=== PATIENT | male | born 1990 | race Caucasian/White ===

== ENCOUNTER 2016-11-18 17:28 | Inpatient (IN) | payer BC, OTHER ==
[2016-11-18] MEDS ORDERED: ONDANSETRON 4 MG/2 ML VIAL ONE (17:43)
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
[2016-11-18] MEDS ORDERED: NS 1,000 ML IV ONE (17:45)
[2016-11-18] MEDS ORDERED: HYDROmorphONE/DILAUDID 1 MG/ML SYR IVP ONE ×2 (17:45→19:15)
[2016-11-18] MEDS ORDERED: ONDANSETRON 4 MG/2 ML VIAL IVP ONE (17:45)
[2016-11-18 18:08] LABS: % IMMATURE GRANULYOCYTES 0.3 % (0.0-1.1); ABSOLUTE IMMATURE GRANULOCYTES 0.04 10^3/uL (0.00-0.10); ADD DIFF? NO; ADD MORPH? NO; ADD SCAN? NO; ATYPICAL LYMPHOCYTE FLAG 0 (0-99); FRAGMENT RBC FLAG 0 (0-99); HEMATOCRIT 44.5 % (40.0-51.0); LEFT SHIFT FLG 0 (0-99); LIPEMIA HEMOLYSIS FLAG 80 (0-99); MEAN CELL HEMOGLOBIN 31.4 pg (27.9-34.1); MEAN CELL HEMOGLOBIN CONCENTR. 33.7 g/dL (32.4-36.7); MEAN CELL VOLUME 93.1 fL (81.5-99.8); MEAN PLATELET VOLUME 9.9 fL (8.7-11.7); PLATELET CLUMPS FLAG 0 (0-99); PLATELET COUNT 322 10^3/uL (150-400); RED BLOOD CELL COUNT 4.78 10^6/uL (4.40-6.38); RED CELL DISTRIBUTION WIDTH 13.1 % (11.5-15.2)
[2016-11-18 18:15] LABS: ANION GAP 10 mEq/L (8-16); CALCIUM 10.4 mg/dL (8.5-10.4); CARBON DIOXIDE 29 mEq/l (22-31); CHLORIDE 100 mEq/L (97-110); CREATININE 0.9 mg/dL (0.7-1.3); GLOMERULAR FILTRATION RATE > 60; GLUCOSE 123 mg/dL (70-100); POTASSIUM 3.9 mEq/L (3.5-5.2); SODIUM 139 mEq/L (134-144)
[2016-11-18] MEDS ORDERED: IOPAMIDOL (ISOVUE-300) 100 ML BTL IV ONE (18:28)
[2016-11-18] MEDS ORDERED: ACETAMINOPHEN 325 MG TAB PO PRN (20:44)
[2016-11-18] MEDS ORDERED: BENZOCAINE UNIT DOSE SPRAY HURRICAINE MM ONE ×2 (20:44)
[2016-11-18] MEDS ORDERED: LIDOCAINE 2% JELLY 20 ML (UROJECT) ONE (20:44)
[2016-11-18] MEDS ORDERED: ONDANSETRON DISINTEGRATING 4 MG TAB PO PRN (20:44)
[2016-11-18] MEDS ORDERED: LORazepam 2 MG/ML INJ ONE (20:46)
--- NOTE | 2016-11-18 20:57 | PDGENHP ---
History and Physical - Chief Complaint abd pain - History of Present Illness 25 y/o male with onset abd pain, nausea and emesis earlier today. Pt was seen in the ED by Dr. De Guzman who ordered a CT scan and surgical consult was requested. PMH: lap appendectomy 2014 small bowel resection 2014 drainage pelvic abscess 2014 meds: non NKDA non-smoker SH: here with friend FH: [facility]U ROS: constipation/occasional blood after BM History Information - Allergies/Home Medication List Allergies/Adverse Reactions: No Known Allergies Allergy (Verified 11/16/14 19:25) Home Medications: NK [No Known Home Meds] 11/18/16 [Last Taken Unknown] I have personally reviewed and updated: family history, medical history, social history, surgical history - Social History Smoking Status: Never smoked Alcohol Use: Occasionally Drug Use: None Physical Exam Temp Pulse Resp BP Pulse Ox 36.5 C 51 L 18 118/71 99 11/18/16 17:32 11/18/16 19:30 11/18/16 19:30 11/18/16 19:30 11/18/16 19:30 O2 (L/minute) 2 Constitutional: uncomfortable Eyes: anicteric sclera Ears, Nose, Mouth, Throat: moist mucous membranes Cardiovascular: regular rate and rhythym Respiratory: no rales or rhonchi, clear to auscultation Gastrointestinal: tenderness (diffuse to palpation/no guarding), distension, other (hypoactive bowel sounds/well healed midline scar without hernia) Genitourinary: no bladder fullness Neurologic: AAOx3 Psychiatric: not anxious Lymph, Heme, Immunologic: no cervical LAD Lab Data & Imaging Review 11/18/16 17:40 11/18/16 17:40 WBC 12.75 10^3/uL (3.80-9.50) H 11/18/16 17:40 RBC 4.78 10^6/uL (4.40-6.38) 11/18/16 17:40 Hgb 15.0 g/dL (13.7-17.5) 11/18/16 17:40 Hct 44.5 % (40.0-51.0) 11/18/16 17:40 MCV 93.1 fL (81.5-99.8) 11/18/16 17:40 MCH 31.4 pg (27.9-34.1) 11/18/16 17:40 MCHC 33.7 g/dL (32.4-36.7) 11/18/16 17:40 RDW 13.1 % (11.5-15.2) 11/18/16 17:40 Plt Count 322 10^3/uL (150-400) 11/18/16 17:40 MPV 9.9 fL (8.7-11.7) 11/18/16 17:40 Neut % (Auto) 64.1 % (39.3-74.2) 11/18/16 17:40 Lymph % (Auto) 27.6 % (15.0-45.0) 11/18/16 17:40 [place] % (Auto) 6.9 % (4.5-13.0) 11/18/16 17:40 Eos % (Auto) 0.6 % (0.6-7.6) 11/18/16 17:40 Baso % (Auto) 0.5 % (0.3-1.7) 11/18/16:40 Nucleat RBC Rel Count 0.0 % (0.0-0.2) 11/18/16 17:40 Absolute Neuts (auto) 8.17 10^3/uL (1.70-6.50) H 11/18/16 17:40 Absolute Lymphs (auto) 3.52 10^3/uL (1.00-3.00) H 11/18/16 17:40 Absolute Monos (auto) 0.88 10^3/uL (0.30-0.80) H 11/18/16 17:40 Absolute Eos (auto) 0.08 10^3/uL (0.03-0.40) 11/18/16 17:40 Absolute Basos (auto) 0.06 10^3/uL (0.02-0.10) 11/18/16 17:40 Absolute Nucleated RBC 0.00 10^3/uL (0-0.01) 11/18/16 17:40 Immature Gran % 0.3 % (0.0-1.1) 11/18/16 17:40 Immature Gran # 0.04 10^3/uL (0.00-0.10) 11/18/16 17:40 Sodium 139 mEq/L (134-144) 02/23/17 17:40 Potassium 3.9 mEq/L (3.5-5.2) 11/18/16 17:40 Chloride 100 mEq/L (97-110) 11/18/16 17:40 Carbon Dioxide 29 mEq/l (22-31) 11/18/16 17:40 Anion Gap 10 mEq/L (8-16) 11/18/16 17:40 BUN 19 mg/dL (7-23) 11/18/16 17:40 Creatinine 0.9 mg/dL (0.7-1.3) 11/18/16 17:40 Estimated GFR > 60 11/18/16 17:40 Glucose 123 mg/dL (70-100) H 11/18/16 17:40 Calcium 10.4 mg/dL (8.5-10.4) 11/18/16 17:40 Visualized and Interpreted Chest x-ray results: Yes Visualized and Interpreted imaging results: Yes Assessment & Plan Assessment: Abdominal Pain-possible bowel obstruction/significant obstipation on CT History of prior SBO/bowel resection Rec: Admit, NGT, IV fluids, serial exams consider SBFT discussed possible need for re-operation Cheko Wesley MD, FACS
[2016-11-18] MEDS ORDERED: LIDOCAINE 2% JELLY 20 ML (UROJECT) UR ONE (21:04)
[2016-11-18] MEDS ORDERED: BENZOCAINE UNIT DOSE SPRAY HURRICAINE MM PRN (21:04)
[2016-11-18] MEDS ORDERED: LORazepam 2 MG/ML INJ IVP ONE (21:05)
[2016-11-18] MEDS: NS 1,000 ML IV SCH (21:56)
[2016-11-18] MEDS: HYDROmorphONE/DILAUDID 1 MG/ML SYR IVP PRN (21:57)
[2016-11-18] MEDS ORDERED: RANITIDINE 50 MG/2 ML VIAL IVP SCH (22:00)
[2016-11-18] MEDS: FAMOTIDINE 20 MG/NACL 50 ML IV SCH (22:10)
[2016-11-19] MEDS: ONDANSETRON 4 MG/2 ML VIAL IVP PRN ×2 (01:29→06:11)
[2016-11-19] MEDS: LORazepam 2 MG/ML INJ IVP PRN (01:49)
[2016-11-19] MEDS: NS 1,000 ML IV SCH ×2 (03:10→08:17)
[2016-11-19] MEDS: HYDROmorphONE/DILAUDID 1 MG/ML SYR IVP PRN ×7 (03:37→15:05)
[2016-11-19 06:04] LABS: % IMMATURE GRANULYOCYTES 0.3 % (0.0-1.1); ABSOLUTE IMMATURE GRANULOCYTES 0.03 10^3/uL (0.00-0.10); ADD DIFF? NO; ADD MORPH? NO; ADD SCAN? NO; ATYPICAL LYMPHOCYTE FLAG 0 (0-99); FRAGMENT RBC FLAG 0 (0-99); HEMATOCRIT 41.4 % (40.0-51.0); HEMOGLOBIN 13.3 g/dL (13.7-17.5); LEFT SHIFT FLG 0 (0-99); LIPEMIA HEMOLYSIS FLAG 80 (0-99); MEAN CELL HEMOGLOBIN 30.4 pg (27.9-34.1); MEAN CELL HEMOGLOBIN CONCENTR. 32.1 g/dL (32.4-36.7); MEAN CELL VOLUME 94.7 fL (81.5-99.8); MEAN PLATELET VOLUME 9.7 fL (8.7-11.7); PLATELET CLUMPS FLAG 0 (0-99); PLATELET COUNT 270 10^3/uL (150-400); RED BLOOD CELL COUNT 4.37 10^6/uL (4.40-6.38); RED CELL DISTRIBUTION WIDTH 13.2 % (11.5-15.2)
[2016-11-19 06:16] LABS: ANION GAP 7 mEq/L (8-16); CALCIUM 9.2 mg/dL (8.5-10.4); CARBON DIOXIDE 25 mEq/l (22-31); CHLORIDE 107 mEq/L (97-110); CREATININE 0.7 mg/dL (0.7-1.3); GLOMERULAR FILTRATION RATE > 60; GLUCOSE 97 mg/dL (70-100); MAGNESIUM 2.2 mg/dL (1.6-2.3); POTASSIUM 4.6 mEq/L (3.5-5.2); SODIUM 139 mEq/L (134-144)
--- NOTE | 2016-11-19 07:25 | SOAPPROG ---
SOAP Progress Note Assessment/Plan: Assessment: possible SBO Plan: continue NG suction SBFT 11/19/16 07:23 Subjective: c/o increased pain/nausea Objective: Vital Signs Temp Pulse Resp BP Pulse Ox 36.5 C 54 L 16 119/74 100 11/19/16 03:45 11/19/16 03:45 11/19/16 03:45 11/19/16 03:45 11/19/16 03:45 Laboratory Results 11/19/16 05:30 11/19/16 05:30 11/18/16 11/19/16 11/20/16 05:59 05:59 05:59 Intake Total 2454 Output Total 370 Balance 2084 Physical Exam - Physical Exam General Appearance: moderate distress Respiratory: lungs clear, normal breath sounds Cardiac/Chest: regular rate, rhythm Abdomen: soft, distended, other (bowel sounds absent) ICD10 Worksheet Patient Problems: Problems Problem Status Onset Small bowel obstruction Acute Small bowel obstruction Acute
[2016-11-19] MEDS: METOCLOPRAMIDE 10 MG/2 ML VIAL IVP PRN ×2 (07:36→14:20)
[2016-11-19] MEDS: FAMOTIDINE 20 MG/NACL 50 ML IV SCH ×2 (07:38→20:31)
--- NOTE | 2016-11-19 11:46 | SOAPPROG ---
Downtime Inpatient MD Late Entry SOAP Note: patient continues to have pain/SBFT pending may need laparotomy S MD Maryjane, FACS
[2016-11-19] MEDS ORDERED: BUPIVACAINE 0.5% 30 ML SDV ONE (13:03)
--- NOTE | 2016-11-19 15:34 | SOAPPROG ---
Downtime Inpatient MD Late Entry SOAP Note: No progression of contrast via NGT/will need laparotomy with lysis of adhesions
[2016-11-19] MEDS ORDERED: fentaNYL 100 MCG/2 ML INJ ONE ×2 (16:21→18:53)
[2016-11-19] MEDS ORDERED: MIDAZOLAM 2 MG/2 ML VIAL ONE (16:52)
[2016-11-19] MEDS ORDERED: ROCURONIUM 100 MG/10 ML VIAL ONE (16:53)
[2016-11-19] MEDS ORDERED: DEXAMETHASONE 4 MG/ML VIAL ONE (16:54)
[2016-11-19] MEDS ORDERED: ONDANSETRON 4 MG/2 ML VIAL ONE (16:54)
[2016-11-19] MEDS ORDERED: PROPOFOL 200 MG/20 ML VIAL ONE (16:54)
[2016-11-19] MEDS ORDERED: fentaNYL 250 MCG/5 ML INJ ONE (16:54)
[2016-11-19] MEDS ORDERED: PROPOFOL/EMULSION 500 MG/50 ML BOTTLE IV ONE (17:22)
[2016-11-19] MEDS ORDERED: SUGAMMADEX SODIUM 200 MG/2 ML VIAL IVP ONE (18:09)
[2016-11-19] MEDS ORDERED: SKIN ADHESIVE (DERMABOND) 1 EACH TP ONE (18:11)
--- NOTE | 2016-11-19 18:45 | POSTOPPROG ---
Post Op Note Date of Operation: 11/19/16 Surgeon: Curtis Wesley (, FACS) Hot Man: Zenobia Lala RN-FA Anesthesiologist: Albert Olson MD Anesthesia: GET(General Endotracheal) Pre-op Diagnosis: SBO Post-op Diagnosis: same Procedure: exploratory laparotomy/lysis of adhesions Findings: adhesions/viable bowel Inf/Abcess present in the surg proc area at time of surgery?: No EBL: Minimal
[2016-11-19] MEDS ORDERED: NALOXONE HCL 0.4 MG/ML INJ IVP PRN (18:46)
[2016-11-19] MEDS ORDERED: MEPERIDINE 25 MG/ML SYR ONE (18:53)
--- NOTE | 2016-11-19 19:16 | GOP ---
DATE OF OPERATION: 11/19/2016 SURGEON: Curtis Wesley MD, FACS SHIP RIGGER APPRENTICE: Areli Lala RN-FA. ANESTHESIA: General endotracheal. ANESTHESIOLOGIST: Albert Smith MD. PREOPERATIVE DIAGNOSIS: Small bowel obstruction. POSTOPERATIVE DIAGNOSIS: Small bowel obstruction. PROCEDURE PERFORMED: Laparotomy with lysis of adhesions. FINDINGS: Adhesive bands between the small bowel and anterior abdominal wall as well as interloop adhesions resulting in a distal small bowel obstruction. Prior small bowel anastomosis just proximal to the ileocecal valve, uninvolved. No evidence of bowel ischemia, perforation, or gangrene. ESTIMATED BLOOD LOSS: 25 mL. DESCRIPTION OF PROCEDURE: After informed consent was obtained, the patient was brought to the operating room and placed under general anesthesia. The abdomen was prepped and draped in usual fashion. The patient had a prior midline incision from previous small bowel resection and this scar had healed by secondary intention. Before proceeding, a time-out identification of the patient was performed. 0.5% Marcaine was used to infiltrate the subdermal tissues deep to the scar that extended from below to above the umbilicus. The infraumbilical scar was the widest. This was excised and the skin discarded. The remainder of the incision was incised to approximately 1 cm above the umbilicus. Slow careful dissection through the fascia and scar tissue was performed with cautery and sharp dissection until the bowel was encountered directly adherent to the anterior abdominal wall. Again slow careful dissection was performed primarily sharply freeing up the bowel from the anterior abdominal wall and entering the peritoneal cavity. After the anterior abdominal wall loops were freed up with sharp dissection, the dilated loops of bowel were traced down to the point of obstruction where the patient had several interloop adhesions that were associated with a transition point. After these were freed up, the remainder of the adhesions distal were freed up down to the prior anastomosis, which was uninvolved in this current obstruction. It was however inspected and all interloop adhesions were taken down in the process from the terminal ileum proximally to the ligament of Treitz. There were no significant pelvic adhesions. The peritoneal cavity was irrigated with a liter of warm normal saline solution until the effluent was clear. Hemostasis appeared secure. The bowel was returned to its anatomic position. Nasogastric tube position was confirmed by palpation and the midline incision closed over Sepramesh with #1 PDS suture. The subcutaneous tissues in the lower aspect of the incision were undermined and approximated with 3-0 Vicryl suture. The skin was closed with 3- 0 Monocryl suture in a subcuticular fashion followed by Dermabond. The patient was extubated and returned to the recovery room in satisfactory condition. Needle, sponge, and instrument count were correct. COMPLICATIONS: None. /[id number]/MODL MTDD
[2016-11-19 19:44] LABS: ANION GAP 8 mEq/L (8-16); CALCIUM 9.8 mg/dL (8.5-10.4); CARBON DIOXIDE 26 mEq/l (22-31); CHLORIDE 104 mEq/L (97-110); CREATININE 0.7 mg/dL (0.7-1.3); GLOMERULAR FILTRATION RATE > 60; GLUCOSE 113 mg/dL (70-100); MAGNESIUM 1.8 mg/dL (1.6-2.3); POTASSIUM 4.3 mEq/L (3.5-5.2); SODIUM 138 mEq/L (134-144)
[2016-11-19] MEDS: LR 1,000 ML IV SCH (20:31)
[2016-11-19] MEDS: HYDROmorphONE/DILAUDID 6 MG/30 ML PCA IV PRN (20:32)
[2016-11-20] MEDS: HYDROmorphONE/DILAUDID 1 MG/ML SYR IVP PRN (02:21)
[2016-11-20] MEDS: FAMOTIDINE 20 MG/NACL 50 ML IV SCH ×2 (07:28→19:33)
[2016-11-20] MEDS: LORazepam 2 MG/ML INJ IVP PRN (08:25)
--- NOTE | 2016-11-20 09:55 | SOAPPROG ---
SOAP Progress Note Assessment/Plan: Assessment: s/p enterolysis Plan: continue IV fluids/DC NGT/continue NPO ambulate discussed recovery 11/19/16 07:23 11/20/16 09:53 Subjective: resting comfortably/intermitant difficulty urinating Objective: Vital Signs Temp Pulse Resp BP Pulse Ox 37.5 C 93 16 124/66 H 90 L 11/20/16 08:00 11/20/16 08:00 11/20/16 08:00 11/20/16 08:00 11/20/16 08:00 Laboratory Results 11/19/16 05:30 11/19/16 19:18 11/19/16 11/20/16 11/21/16 05:59 05:59 05:59 Intake Total 2454 1850 Output Total 370 1290 Balance 2084 560 Physical Exam - Physical Exam General Appearance: no apparent distress Respiratory: lungs clear Cardiac/Chest: regular rate, rhythm Abdomen: soft, distended, other (incision o.k./+BS) Neuro/Psych: normal mood/affect ICD10 Worksheet Patient Problems: Problems Problem Status Onset Small bowel obstruction Acute Small bowel obstruction Acute
[2016-11-20] MEDS: HYDROmorphONE/DILAUDID 6 MG/30 ML PCA IV PRN (13:49)
[2016-11-20] MEDS: LR 1,000 ML IV SCH (13:50)
[2016-11-21] MEDS: HYDROmorphONE/DILAUDID 6 MG/30 ML PCA IV PRN ×2 (04:43→21:23)
[2016-11-21] MEDS: FAMOTIDINE 20 MG/NACL 50 ML IV SCH ×2 (07:55→20:21)
--- NOTE | 2016-11-21 10:16 | SOAPPROG ---
SOAP Progress Note Assessment/Plan: Assessment: s/p enterolysis Plan: continue IV fluids/continue NPO-advance when passing flatus ambulate 11/19/16 07:23 11/20/16 09:53 11/21/16 10:12 Subjective: awake and alert/denies nausea no flatus yet Objective: Vital Signs Temp Pulse Resp BP Pulse Ox 37.3 C 74 16 112/57 L 93 11/21/16 09:39 11/21/16 09:39 11/21/16 09:39 11/21/16 09:39 11/21/16 09:39 Laboratory Results 11/19/16 05:30 11/19/16 19:18 11/20/16 11/21/16 11/22/16 05:59 05:59 05:59 Intake Total 1850 3524 Output Total 1290 2825 Balance 560 699 - Pending Discharge Pending Discharge Within 24 Hours: No Pending Discharge Within 48 Hours: No Physical Exam - Physical Exam General Appearance: no apparent distress Cardiac/Chest: regular rate, rhythm Abdomen: non-tender, soft, distended, other (incision o.k./hypoactive bowel sounds) Neuro/Psych: alert, normal mood/affect ICD10 Worksheet Patient Problems: Problems Problem Status Onset Small bowel obstruction Acute Small bowel obstruction Acute
[2016-11-21] MEDS: LR 1,000 ML IV SCH (16:46)
[2016-11-22] MEDS: LR 1,000 ML IV SCH (04:39)
--- NOTE | 2016-11-22 08:13 | SOAPPROG ---
SOAP Progress Note Assessment/Plan: Assessment: s/p enterolysis resolving ileus Plan: trial of liquids ambulate anticipate discharge tomorrow 11/19/16 07:23 11/20/16 09:53 11/21/16 10:12 11/22/16 08:12 Subjective: reports passing flatus/mild pain Objective: Vital Signs Temp Pulse Resp BP Pulse Ox 36.6 C 61 16 116/64 93 11/22/16 04:00 11/22/16 06:00 11/22/16 06:00 11/22/16 04:00 11/22/16 06:00 Laboratory Results 11/19/16 05:30 11/19/16 19:18 11/21/16 11/22/16 11/23/16 05:59 05:59 05:59 Intake Total 2588 253 Output Total 7730 6700 Balance 699 -514 - Pending Discharge Pending Discharge Within 24 Hours: Yes Pending Discharge Date: 11/23/16 Pending Discharge Time: 11:00 Physical Exam - Physical Exam General Appearance: no apparent distress Respiratory: normal breath sounds Abdomen: non-tender, soft, other (midline healing/less distended) ICD10 Worksheet Patient Problems: Problems Problem Status Onset Small bowel obstruction Acute Small bowel obstruction Acute
[2016-11-22] MEDS: FAMOTIDINE 20 MG/NACL 50 ML IV SCH ×2 (09:10→20:27)
[2016-11-22] MEDS: HYDROmorphONE/DILAUDID 1 MG/ML SYR IVP PRN (21:25)
[2016-11-23] MEDS: HYDROmorphONE/DILAUDID 1 MG/ML SYR IVP PRN (00:05)
[2016-11-23 04:21] VITALS: RESP 12
[2016-11-23] MEDS ORDERED: HYDROCODONE/APAP 5/325 TAB PO PRN (07:59)
[2016-11-23] MEDS ORDERED: IBUPROFEN 600 MG TAB PO PRN (07:59)
--- NOTE | 2016-11-23 08:08 | PDDCSUM ---
Discharge Summary Discharge Summary: DOA 11/18/16 DOD 11/23/16 DC Dx: 1. SBO Surgery 11/19/16: laparotomy and lysis of adhesions DC Meds: Ibuprofen 600mg po q6H prn [place] 5/325 1 po q4H prn Senokot S 1 po BID Course: Donal was admitted 11/18 PM with a recurrent SBO. Attempted SBFT on 11/19 showed no contrast leaving the stomach. He was brought to the OR and underwent lysis of adhesions on 11/19. Post op Day #1 his NGT was removed and he was started on clear liquids. On the day of discharge he was tolerating a soft diet, ambulatory and afebrile. He received only a single dose of prophylactic antibiotics. His incision was healing without signs of infection at the time of discharge. We discussed activity, diet and FU in my office in one week. Cheko Wesley MD, FACS -
[2016-11-23 08:44] VITALS: BP 125/69; PULSE 65; O2SAT 98
[2016-11-23 08:48] VITALS: TEMP 98
[2016-11-23] MEDS ORDERED: SENNOSIDES/DOCUSATE SODIUM TAB PO SCH (09:00)
== END 2016-11-23 10:52 | disposition home or self-care (01) | DRG 337 ==
LOC: F3E 21:10
PROVIDERS: ADMIT Surgery; ATTEND Surgery
PROC: 0DN80ZZ Release Small Intestine, Open Approach (ICD-10-PCS; principal; 2016-11-18)
DX: K56.5 Intestinal adhesions [bands] with obstruction (postinfection) (principal)
CPT/HCPCS: 96374; C1765; J1100; J1170; J2250; J2405; J2704; J2765; J3010; Q9967